=== PATIENT | male | born 1975 | race Caucasian/White ===

== ENCOUNTER 2021-04-23 05:03 | Emergency (ER) | payer OTHER ==
[2021-04-23] MEDS ORDERED: AUGMENTIN 875-1 EACH PO (08:27)
== END 2021-04-23 08:45 | disposition home or self-care (01) ==
LOC: ER1 05:03
DX: K04.7 Periapical abscess without sinus (principal); E11.9 Type 2 diabetes mellitus without complications
CPT/HCPCS: 96372; 99282; J1885

== ENCOUNTER → 2021-08-01 | Day surgery (SDC) | payer OTHER ==
[~2021-08-01] MED LIST: AUGMENTIN 875-1 EACH PO; CRESTOR10 MG PO; LEXAPRO20 MG PO; METOPROLOL SUCC25 MG PO; VITAMIN D3125 MCG PO
== END | disposition home or self-care (01) ==
LOC: OR 09:15
DX: Z12.11 Encounter for screening for malignant neoplasm of colon (principal); E11.9 Type 2 diabetes mellitus without complications; E78.5 Hyperlipidemia, unspecified; I10 Essential (primary) hypertension; Z80.0 Family history of malignant neoplasm of digestive organs; Z91.041 Radiographic dye allergy status; Z87.891 Personal history of nicotine dependence
CPT/HCPCS: 82962; J2001; J2704; J7120